=== PATIENT | male | born 1995 | race Hispanic/Latino ===

== ENCOUNTER → 2021-03-08 | Emergency (ER) | payer OTHER ==
[~2021-03-08] VITALS: Ht 167.6 cm; Wt 70.8 kg
[2021-03-08 16:06] VITALS: BP 110/74
== END ==
LOC: EDH 16:05
DX: U07.1 COVID-19 (principal); Z20.822 Contact with and (suspected) exposure to COVID-19
CPT/HCPCS: 87635; 87804 ×2; C9803